=== PATIENT | female | born 2000 | race American Indian/Alaskan Native ===

== ENCOUNTER 2025-07-23 17:14 | Emergency (ER) | payer BC ==
[2025-07-23] MEDS: Lactated Ringers 1,000 ML IV ONE (17:51)
[2025-07-23] MEDS: Magnesium Sulfate 2 GM/50 mL 2 GM in Premix Bag 1 BAG IV ONE (18:34)
[2025-07-23] MEDS: diphenhydrAMINE 50 MG/ML SDV IVPUSH ONE (18:49)
[2025-07-23] MEDS: Ketorolac 30 MG/ML SDV IVPUSH ONE (18:49)
[2025-07-23 19:02] LABS: APPEARANCE,URINE CLEAR (CLEAR); GLUCOSE,URINE NEGATIVE (NEGATIVE); OCCULT BLOOD,URINE TRACE-INTACT (NEGATIVE)
[2025-07-23 19:17] LABS: EPITHELIAL CELLS,URINE MODERATE /HPF (NOT SEEN)
[2025-07-23] MEDS: Dexamethasone 4 MG/ML SDV IVPUSH ONE (20:26)
== END 2025-07-23 21:40 | disposition home or self-care (01) ==
LOC: DL.ED 17:14
DX: G43.809 Other migraine, not intractable, without status migrainosus (principal); Z88.0 Allergy status to penicillin; Z88.8 Allergy status to other drugs, medicaments and biological substances
CPT/HCPCS: 81001; 81025; 96365; 96375; 99284; J1100; J1200; J1885; J2765; J3475; J7120; Q0164; 99283